=== PATIENT | male | born 1970 | race Caucasian/White ===

== ENCOUNTER 2019-07-08 10:58 | Emergency (ER) | payer MEDICAID, OTHER ==
[2019-07-08 11:03] VITALS: BP 145/76
[2019-07-08] MEDS ORDERED: SULFAMETHOXAZOLE/TRIMETHOPRIM 800-160 MG TABLET PO ONE (11:07)
--- NOTE | 2019-07-08 11:09 | ER Document Report ---
ED General - General Chief Complaint: Abscess Stated Complaint: POSSIBLE ABSCESS Notes: Patient is a 49-year-old white male with a past medical history of prior abscess formations who presents to the emergency department the chief complaint of suspected abscess formation to the left medial antecubital space for the past 3 days. He states area is red, warm, hard and tender. Admits to some mild drainage from the center of the wound that is at first white but now a chocolate color with a foul odor. He went to urgent care for I&D and they referred him here related to where the abscess was located. Patient denies any known fever, nausea vomiting, diarrhea, chills, night sweats. - Related Data Allergies/Adverse Reactions: No Known Allergies Allergy (Verified 07/08/19 11:06) Past Medical History - Social History Smoking Status: Current Some Day Smoker Chew tobacco use (# tins/day): No Frequency of alcohol use: None Drug Abuse: None Family History: Reviewed & Not Pertinent Patient has suicidal ideation: No Patient has homicidal ideation: No - Past Medical History Cardiac Medical History: Reports: Hx Hypertension - "borderline" Past Surgical History: Reports: Hx Orthopedic Surgery - L knee, C6 vertebrae - Immunizations Hx Diphtheria, Pertussis, Tetanus Vaccination: Yes Review of Systems - Review of Systems Skin: Change in color -: Yes All other systems reviewed and negative Physical Exam - Vital signs Vitals: Temp Pulse Resp BP Pulse Ox 99.3 F 108 H 18 145/76 H 96 07/08/19 11:02 07/08/19 11:02 07/08/19 11:02 07/08/19 11:02 07/08/19 11:02 - General General appearance: Appears well, Alert - Respiratory Respiratory status: No respiratory distress Chest status: Nontender Breath sounds: Normal Chest palpation: Normal - Cardiovascular Rhythm: Regular Heart sounds: Normal auscultation - Extremities Notes: Full passive range of motion of the left arm. 2+ radial on the left. - Neurological Neuro grossly intact: Yes Cognition: Normal Orientation: AAOx4 [place] Coma Scale Eye Opening: Spontaneous [place] Coma Scale Verbal: Oriented [place] Coma Scale Motor: Obeys Commands [place] Coma Scale Total: 15 Speech: Normal Motor strength normal: LUE, RUE, LLE, RLE Sensory: Normal - Psychological Associated symptoms: Normal affect, Normal mood - Skin Skin Color: Other - Area of induration and erythema to the left medial brachium. Centralized crusting from reported prior drainage. No fluctuance appreciated. No proximal streaking. Course - Re-evaluation Re-evalutation: 07/08/19 13:06 Patient tolerated I&D well. He does have a leukocytosis. Was given Bactrim here. Will be sent home on Bactrim and Keflex. Short course of pain medications. Counseled regarding return in 48 hours for wound check and packing removal. Advised to return here or any ER immediately with any new, persistent or worsening symptoms. He verbalized understood and agreed. - Vital Signs Vital signs: Temp Pulse Resp BP Pulse Ox 99.3 F 108 H 18 145/76 H 96 07/08/19 11:02 07/08/19 11:02 07/08/19 11:02 07/08/19 11:02 07/08/19 11:02 - Laboratory Result Diagrams: 07/08/19 11:15 07/08/19 11:15 Laboratory results interpreted by me: 07/08/19 07/08/19 11:15 11:15 WBC 18.4 H Absolute Neuts (auto) 14.1 H Absolute Monos (auto) 1.5 H Sodium 135.2 L Glucose 125 H Procedures - Incision and Drainage Left Upper Arm Time completed: 13:06 Type: Complex Anesthetic type: 1% Lidocaine w/epi mL's of anesthetic: 3 Blade size: 11 I&D procedure: Betadine prep applied, Chlorprep applied Incision Method: Incision made by scalpel Amount/type of drainage: Copious purulent Notes: 07/08/19 13:06 Patient tolerated well, packed with iodoform gauze. Discharge - Discharge Clinical Impression: Abscess Condition: Stable Disposition: HOME, SELF-CARE Instructions: Post Incision and Drainage Additional Instructions: Follow-up with your regular doctor in 2 to 3 days for reevaluation. Return here or any ER immediately with any new, persistent or worsening symptoms. Prescriptions: Sulfamethoxazole/Trimethoprim [Bactrim Ds Tablet] 1 each PO BID #20 tablet Cephalexin Monohydrate [Keflex 500 mg Capsule] 500 mg PO Q6H 10 Days #40 capsule Hydrocodone/Acetaminophen [[place] 5-325 mg Tablet] 1 tab PO Q6 PRN #10 tablet PRN Reason:
[2019-07-08 11:39] LABS: ABSOLUTE EOSINOPHILS # (AUTO) 0.1 10^3/uL (0.0-0.6); ABSOLUTE LYMPHOCYTES (AUTO) 2.7 10^3/uL (0.5-4.7); ABSOLUTE MONOCYTES (AUTO) 1.5 10^3/uL (0.1-1.4); ABSOLUTE NEUT (AUTO) 14.1 10^3/uL (1.7-8.2); BASOPHILS % (AUTO) 0.2 % (0-2); EOSINOPHILS % (AUTO) 0.6 % (0-6); HEMOGLOBIN 15.9 g/dL (13.5-17.0); LYMPHOCYTES % (AUTO) 14.6 % (13-45); MEAN CORPUSCULAR HEMOGLOBIN 30.8 pg (27.0-33.4); MEAN CORPUSCULAR HGB CONC 34.7 g/dL (32.0-36.0); MEAN CORPUSCULAR VOLUME 89 fl (80-97); PLATELET COUNT 278 10^3/uL (150-450); RED BLOOD COUNT 5.17 10^6/uL (4.35-5.55); RED CELL DISTRIBUTION WIDTH 13.9 % (11.5-14.0); SEGMENTED NEUTROPHILS % (AUTO) 76.6 % (42-78); TOTAL CELLS COUNTED % (AUTO) 100 %; WHITE BLOOD COUNT 18.4 10^3/uL (4.0-10.5)
[2019-07-08 11:59] LABS: ALKALINE PHOSPHATASE 50 U/L (38-126); ANION GAP 7 (5-19); ASPARTATE AMINO TRANSFERASE 20 U/L (17-59); BILIRUBIN,TOTAL 0.5 mg/dL (0.2-1.3); BLOOD UREA NITROGEN 18 mg/dL (7-20); CALCIUM 9.8 mg/dL (8.4-10.2); CARBON DIOXIDE 26 mmol/L (22-30); CHLORIDE 102 mmol/L (98-107); GLUCOSE 125 mg/dL (75-110); POTASSIUM 4.7 mmol/L (3.6-5.0); TOTAL PROTEIN 7.9 g/dL (6.3-8.2)
--- NOTE | 2019-07-08 12:10 | RADIOLOGY REPORT (SQ) ---
EXAM DESCRIPTION: U/S EXTREMITY NONVASCULAR LTD IMAGES COMPLETED DATE/TIME: 07/08/2019 11:52 am REASON FOR STUDY: ? fluid collection R brachium COMPARISON: None. TECHNIQUE: Back at real-time grayscale ultrasound imaging of left arm antecubital fossa. Color flow images and cine images saved to pac's. LIMITATIONS: None. FINDINGS: Just deep to the skin surface, a 5 x 4 x 3 cm abscess is present the antecubital fossa sof t tissues, superficial to the vessels and musculature. IMPRESSION: Just deep to the skin surface, a 5 x 4 x 3 cm abscess is present the antecubital fossa s oft tissues, superficial to the vessels and musculature TECHNICAL DOCUMENTATION: JOB ID: [id number] 2010 [employer]- All Rights Reserved Reading location - IP/workstation name: [id number]
[2019-07-08] MEDS ORDERED: LIDOCAINE 1%/EPINEPHRINE INJ 20 ML VIAL INJ ONE (12:38)
[2019-07-08] MEDS ORDERED: LIDOCAINE 1% INJ-PF (10 MG/ML) 30 ML SDV INJ ONE (12:38)
== END 2019-07-08 13:20 | disposition home or self-care (01) ==
LOC: ER 10:58
DX: L02.414 Cutaneous abscess of left upper limb (principal)
CPT/HCPCS: 99284; 36415; 85025; 80053; 76882; 10061; J3490